=== PATIENT | female | born 1945 | race Caucasian/White ===

== ENCOUNTER → 2021-04-21 | Outpatient (CLI) | payer MEDICARE ==
[~2021-04-21] MED LIST: IOHEXOL-350 75 ML VIAL IV ONE
== END | disposition home or self-care (01) ==
LOC: RAH 04-17 12:08
PROVIDERS: ATTEND Internal Medicine Cardiovascular Disease
DX: R10.13 Epigastric pain (principal); E07.9 Disorder of thyroid, unspecified
CPT/HCPCS: 75574; Q9967